=== PATIENT | male | born 1960 | race Caucasian/White ===

== ENCOUNTER 2017-06-01 08:28 | Outpatient (CLI) | payer OTHER ==
[2017-06-01 09:23] LABS: Anion Gap 15 mmol/L (10-20); BUN (Urea Nitrogen) 16 mg/dL (8.4-25.7); Calc. Creatinine Clearance 0 mL/min (70-130); Calcium 9.4 mg/dL (7.8-10.44); Carbon Dioxide 29 mmol/L (22-29); Chloride 102 mmol/L (98-107); Estimated GFR-MDRD 63
--- NOTE | 2017-06-01 11:24 | CT ---
CT ABDOMEN AND PELVIS WITH AND WITHOUT IV CONTRAST: HISTORY: Microscopic hematuria. FINDINGS: The lung bases are unremarkable. The liver, spleen, pancreas, and adrenal glands are normal. No ca lcified gallstones are seen. No free air, free fluid, or lymphadenopathy is identified in the abdom en or pelvis. No calculi are seen in the kidneys, ureters, or the urinary bladder. There is a 6 cm exophytic cyst arising from the right kidney and a 2.5 cm cyst arising from the left kidney. No enhancing renal m ass is seen. There is normal contrast excretion into the ureters and the urinary bladder. No hydro ureteral nephrosis is noted on either side. A mildly enlarged prostate is present. There is a normal-appearing appendix. There is mild sigmoid diverticulosis. There is no evidence o f aneurysmal dilatation of the abdominal aorta. There are degenerative changes in the spine. IMPRESSION: 1. Bilateral renal cysts. 2. No CT evidence of urinary tract calculi or obstruction. 3. Mild sigmoid diverticulosis. 4. Mild prostatic enlargement. POS: [facility]
== END 2017-06-01 08:29 | disposition home or self-care (01) ==
LOC: SCSCT 08:28
PROVIDERS: ATTEND Urology
DX: R31.29 Other microscopic hematuria (principal); N28.1 Cyst of kidney, acquired; K57.30 Diverticulosis of large intestine without perforation or abscess without bleeding; N40.0 Benign prostatic hyperplasia without lower urinary tract symptoms
CPT/HCPCS: 74177; 80048

== ENCOUNTER 2019-03-05 15:04 | Outpatient (CLI) | payer OTHER ==
--- NOTE | 2019-03-05 15:27 | ULT ---
Renal ultrasound: 03/05/2019 COMPARISON: None HISTORY: Microscopic hematuria technique: Multiplanar grayscale sonographic imaging of the kidneys an d urinary bladder obtained. FINDINGS: Right kidney measures 11.1 x 4.8 x 6.0 cm. Left kidney measures 12.4 x 5.4 x 6.2 cm. No solid renal mass, hydronephrosis, or renal stone appreciated on either side. There is an exophytic cyst emanating from the upper pole of the right kidney with a thin internal septation. This cyst measures approximately 5.9 x 6.5 x 5.9 cm. There is a cyst within the lateral aspect of the left kidn ey measuring 2.4 x 2.4 x 2.6 cm. Prevoid urinary bladder volume is 135 cc and postvoid urinary bladder volume is 41 cc. IMPRESSION: Bilateral renal cysts.
== END 2019-03-05 15:05 | disposition home or self-care (01) ==
LOC: SCSULT 15:04
PROVIDERS: ATTEND Urology
DX: N28.1 Cyst of kidney, acquired (principal); Z80.51 Family history of malignant neoplasm of kidney
CPT/HCPCS: 76770

== ENCOUNTER 2019-04-05 07:24 | Outpatient (CLI) | payer OTHER ==
--- NOTE | 2019-04-05 08:41 | CT ---
CT ABDOMEN AND PELVIS WITH AND WITHOUT IV CONTRAST 04/05/2019 CLINICAL INFORMATION: Follow-up kidneys cysts. Family history of renal cancer. COMPARISON: 06/01/2017 Technique: Multiple contiguous axial CT images are obtained through the abdomen and pelvis with IV contrast. Cor onal reformatted images are provided. FINDINGS: Lower Chest: within normal limits. Vessels: Mild vascular calcifications in the abdominal aorta and iliac arteries. Abdomen: Portal vein:Patent Gallbladder: Within normal limits for CT imaging. Liver: within normal limits. Spleen: within normal limits. Pancreas: within normal limits. Adrenals: within normal limits. Kidneys: Again noted is a large exophytic right renal cyst involving the midportion right kidney divina uring 6.5 cm. An exophytic 2.6 cm cyst is again seen involving the midportion left kidney. A tiny subcentimeter too small to characterize hypodense lesion is seen in each kidney. No enhancing renal m ass is present. No renal calculi are seen bilaterally, and there is no evidence of hydronephrosis. No ureteral calculi are seen. No filling defects are seen on the delayed images within either renal c ollecting system or in the right ureter. The left ureter is not opacified. Bowel: Normal caliber. Appendix: The appendix is visualized and normal in caliber. Peritoneum: No ascites or free air; no fluid collection. Mesentery and Retroperitoneum: No enlarged mesenteric or retroperitoneal lymph nodes. Abdominal Wall: Tiny fat-containing umbilical hernia. Pelvis: Reproductive Organs: No pelvic masses. Pelvis within normal limits. Bladder: Partially distended and normal in appearance. Bones: A few sclerotic densities are seen in the proximal right femur demonstrating characteristics m ost compatible with bone islands. No suspicious lytic or sclerotic osseous lesions are identified. IMPRESSION: 1. No acute findings are seen in the abdomen or pelvis. 2. Bilateral renal cysts as well as a subcentimeter too small to characterize hypodense lesion in eac h kidney. 3. No renal or ureteral calculi are seen bilaterally, and there is no hydronephrosis.
[2019-04-05] MEDS ORDERED: Iopamidol 370 76% 100 ML VIAL ONE (09:00)
== END 2019-04-05 07:25 | disposition home or self-care (01) ==
LOC: SCSCT 07:24
PROVIDERS: ATTEND Urology
DX: N28.1 Cyst of kidney, acquired (principal); N28.89 Other specified disorders of kidney and ureter; Z80.51 Family history of malignant neoplasm of kidney
CPT/HCPCS: 74178; 82565

== ENCOUNTER 2020-06-11 13:50 | Outpatient (CLI) | payer OTHER ==
--- NOTE | 2020-06-11 14:41 | ULT ---
US Renal Bilateral STANDARD: 06/11/2020 1:56 PM CLINICAL HISTORY: Complex renal cyst. STUDY: Renal ultrasound COMPARISON: 03/05/[address] abdomen/pelvis 04/05/2019 FINDINGS: Right kidney: Echogenicity: Normal. Masses/cysts: 7.9 cm simple cyst Hydronephrosis: None. Calcifications: None. Length: 11.7 cm Left kidney: Echogenicity: Normal. Masses/cysts: 3.6 cm simple cyst Hydronephrosis: None. Calcifications: None. Length: 12.4 cm Limited visualization of the urinary bladder is unremarkable. IMPRESSION: Bilateral renal cysts
== END 2020-06-11 13:51 | disposition home or self-care (01) ==
LOC: SCSULT 13:50
PROVIDERS: ATTEND Urology
DX: N28.1 Cyst of kidney, acquired (principal)
CPT/HCPCS: 76770

== ENCOUNTER 2021-09-24 10:21 | Outpatient (CLI) | payer OTHER ==
[2021-09-24 11:53] LABS: Bilirubin Neg (Negative); Blood, Urine 10 (Negative); Clarity Clear (Clear); Glucose, Urine (Dipstick) 100 mg/dL (Negative); Ketone, Urine Negative (Negative); Leukocyte Negative (Negative); Nitrite Negative (Negative); Protein, Urine (Dipstick) Negative (Neg-Trace); Specific Gravity, Urine 1.015 (1.002-1.036); Urobilinogen Normal mg/dL (Less than 2)
[2021-09-24 12:01] LABS: Bacteria/HPF None Seen HPF (None Seen); RBC/HPF 0-3 HPF (0-3); Squamous Epithelial 0-3 HPF (0-3); WBC/HPF 0-3 HPF (0-3)
[2021-09-24 12:01] LABS: Hemoglobin 17.5 g/dL (13.5-17.5); Mean Corpuscular HGB CONC 34.8 g/dL (32.0-36.0); Mean Corpuscular Volume 89.2 fl (81.2-95.1); Mean Platelet Volume 8.9 fl (7.4-10.4); Platelet Count 286 10x3/uL (150-450); Red Blood Cell (RBC) Count 5.64 10x6/uL (4.32-5.72); White Blood Cell (WBC) Count 5.9 10x3/uL (3.5-10.5)
[2021-09-24 12:10] LABS: INR-International Normal Ratio 0.9; PTT 26.7 sec (22.0-33.0); Prothrombin Time 10.3 sec (9.5-12.1)
[2021-09-24 12:14] LABS: Anion Gap 13 mmol/L (10-20); BUN (Urea Nitrogen) 17 mg/dL (8.4-25.7); Calc. Creatinine Clearance 0 mL/min (70-130); Calcium 9.3 mg/dL (7.8-10.44); Carbon Dioxide 28 mmol/L (23-31); Chloride 102 mmol/L (98-107); Glucose 116 mg/dL (80-115); Potassium 4.3 mmol/L (3.5-5.1); Sodium 139 mmol/L (136-145)
[2021-09-25 00:13] LABS: SARS-CoV-2 PCR by NAA Not Detected (NotDetected)
== END 2021-09-24 10:22 | disposition home or self-care (01) ==
LOC: LABBT 10:21
PROVIDERS: ATTEND Urology
DX: Z01.818 Encounter for other preprocedural examination (principal); Z12.5 Encounter for screening for malignant neoplasm of prostate; N40.1 Benign prostatic hyperplasia with lower urinary tract symptoms; R31.29 Other microscopic hematuria; R39.11 Hesitancy of micturition; N28.1 Cyst of kidney, acquired; R39.14 Feeling of incomplete bladder emptying; R81 Glycosuria; Z80.51 Family history of malignant neoplasm of kidney; Z20.822 Contact with and (suspected) exposure to COVID-19
CPT/HCPCS: 80048; 81001; 85027; 85610; 85730; 87086; 93005; 93010; U0003; U0005

== ENCOUNTER 2021-09-29 06:35 | Day surgery (SDC) | payer OTHER ==
[2021-09-20 14:27] VITALS: BMI 30.4
[2021-09-29] MEDS ORDERED: Fentanyl 100 MCG/2 ML VIAL ONE (08:07)
[2021-09-29] MEDS ORDERED: B & O ONE (08:07)
[2021-09-29] MEDS ORDERED: Levofloxacin 500 mg/D5W 100 ml Premix Bag ONE (08:15)
[2021-09-29] MEDS ORDERED: Lidocaine 1% PF 5 ML VIAL ONE (08:21)
[2021-09-29] MEDS ORDERED: PROPOFOL 200 MG/20 ML VIAL ONE (08:21)
[2021-09-29] MEDS ORDERED: Phenazopyridine HCl 100 MG TAB ONE (09:07)
[2021-09-29] MEDS ORDERED: Oxybutynin 5 MG TAB ONE (09:07)
[2021-09-29] MEDS ORDERED: HYDROcodone/Acetaminophen 5/325 mg Tablet ONE (09:23)
[2021-09-29] MEDS ORDERED: Meperidine HCl/PF 25 MG/ML VIAL ONE (10:03)
[2021-09-29] MEDS ORDERED: Hyoscyamine Sulfate SL 0.125 mg Tablet ONE ×3 (10:13→10:17)
== END 2021-09-29 11:33 | disposition home or self-care (01) ==
LOC: SDC 06:35
PROVIDERS: ATTEND Urology
PROC: 0T7D8DZ Dilation of Urethra with Intraluminal Device, Via Natural or Artificial Opening Endoscopic (ICD-10-PCS; principal; 2021-09-29)
DX: N40.1 Benign prostatic hyperplasia with lower urinary tract symptoms (principal); N13.8 Other obstructive and reflux uropathy; R39.14 Feeling of incomplete bladder emptying; R39.11 Hesitancy of micturition; N28.1 Cyst of kidney, acquired; N32.89 Other specified disorders of bladder; I10 Essential (primary) hypertension; E78.5 Hyperlipidemia, unspecified; Z79.899 Other long term (current) drug therapy; Z88.6 Allergy status to analgesic agent; Z88.8 Allergy status to other drugs, medicaments and biological substances
CPT/HCPCS: J1956; J2175; J2704; J3010; L8699

== ENCOUNTER 2025-07-24 13:03 | Outpatient (CLI) | payer MEDICARE | END 2025-07-24 13:04 | disposition home or self-care (01) | LOC: SCSULT 13:03 | PROVIDERS: ATTEND Urology | DX: N40.1 Benign prostatic hyperplasia with lower urinary tract symptoms (principal); N28.1 Cyst of kidney, acquired | CPT/HCPCS: 76770 ==